=== PATIENT | female | born 1995 | race Caucasian/White ===

== ENCOUNTER 2020-12-30 14:14 | Inpatient (IN) | payer MEDICAID ==
[~2020-12-30] VITALS: Ht 167.6 cm; Wt 83.0 kg
[2020-12-30] MEDS ORDERED: DEXT 5%/LR + PITOCIN 20UNITS/L 1,000 ML IV SCH (16:00)
[2020-12-30] MEDS ORDERED: LACTATED RINGERS 1,000 ML IV SCH (16:00)
[2020-12-30 16:14] LABS: CLARITY URINE CLEAR (CLEAR); COLOR URINE YELLOW (YELLOW); KETONES URINE TRACE (NEGATIVE); LEUKOCYTE ESTERASE URINE 2+ (NEGATIVE); NITRITE URINE NEGATIVE (NEGATIVE); OCCULT BLOOD URINE NEGATIVE (NEGATIVE); PH URINE 6.5 (4.5-8.0); PROTEIN URINE TRACE (NEGATIVE); SPECIFIC GRAVITY URINE 1.025 (1.005-1.030)
[2020-12-30] MEDS ORDERED: CITRIC ACID/SODIUM CITRATE SOLN 30ML UDC PO NR (16:15)
[2020-12-30 16:22] LABS: BASOPHILS % 0.5 % (0.0-2.0); HEMATOCRIT. 28.8 % (36.0-48.0); HEMOGLOBIN. 9.5 g/dL (12.0-16.0); LYMPHOCYTES % 15.5 % (20.0-50.0); MEAN CORPUSCULAR HEMOGLOBIN 28.3 pg (28.0-32.0); MEAN CORPUSCULAR VOLUME 86.1 fL (81.0-99.0); MEAN PLATELET VOLUME 8.5 fl (7.4-10.4); MONOCYTES % 7.1 % (2.0-8.0); NEUTROPHILS % 75.9 % (40.0-76.0); PLATELET 226 x1000/uL (130-400); RED BLOOD CELL COUNT 3.35 mill/uL (4.2-5.4); RED CELL DISTRIBUTION WIDTH 15.1 % (11.6-14.6)
[2020-12-30 16:23] LABS: PARTIAL THROMBOPLASTIN TIME 30.9 sec (23.4-31.0); PROTHROMBIN TIME 10.3 sec (9.6-11.0)
[2020-12-30 16:32] LABS: *AMPHETAMINES SCREEN URINE NEGATIVE (NEGATIVE); *BARBITURATES SCREEN URINE NEGATIVE (NEGATIVE); *BENZODIAZEPINES SCREEN URINE NEGATIVE (NEGATIVE); *COCAINE SCREEN URINE NEGATIVE (NEGATIVE); METHADONE URINE SCREEN NEGATIVE (NEGATIVE)
[2020-12-30 16:33] LABS: OPIATES URINE SCREEN NEGATIVE (NEGATIVE); PHENCYCLIDINE URINE SCREEN NEGATIVE (NEGATIVE)
[2020-12-30 16:41] LABS: CANNABINOID URINE SCREEN PRESUMTIVE POSITIVE (NEGATIVE)
[2020-12-30] MEDS ORDERED: CEFAZOLIN SODIUM 1000MG/VIAL ONE (16:44)
[2020-12-30] MEDS ORDERED: MORPHINE SULFATE/PF 1MG/ML 10ML AMP ONE (16:44)
[2020-12-30] MEDS ORDERED: ONDANSETRON HCL 4MG/2ML INJ ONE (16:44)
[2020-12-30] MEDS ORDERED: OXYTOCIN 10 UNITS/ML 1ML ONE (16:44)
[2020-12-30] MEDS ORDERED: EPHEDRINE SULFATE 50MG/ML VIAL ONE (16:44)
[2020-12-30] MEDS ORDERED: FENTANYL CITRATE/PF 50MCG/ML 2ML VIAL ONE (16:44)
[2020-12-30 16:57] LABS: HEPATITIS B SURFACE ANTIGEN NEGATIVE
[2020-12-30] MEDS ORDERED: ESMOLOL HCL 10MG/ML 10ML VIAL IV ONE (21:02)
[2020-12-30] MEDS ORDERED: KETOROLAC 60MG/2ML VIAL IM ONE (21:02)
[2020-12-30] MEDS ORDERED: DIPHENHYDRAMINE 50MG/ML VIAL ONE (21:02)
[2020-12-30] MEDS ORDERED: DIPHENHYDRAMINE 50MG/ML VIAL IV PRN (21:15)
[2020-12-30] MEDS ORDERED: NALOXONE HCL 0.4 MG/ML 1ML VIAL IV PRN (21:15)
[2020-12-30] MEDS ORDERED: BUTORPHANOL TARTRATE 2 MG/ML VIAL IV PRN ×2 (21:15→22:00)
[2020-12-30] MEDS ORDERED: RHO(D) IMMUNE GLOBULIN 300 MCG/SYR IM PRN (21:45)
[2020-12-30] MEDS ORDERED: KETOROLAC 30MG/ML VIAL IV PRN (21:45)
[2020-12-30] MEDS ORDERED: BISACODYL 10MG SUPP PR PRN (21:45)
[2020-12-30] MEDS ORDERED: IBUPROFEN 400MG TABLET PO PRN (21:45)
[2020-12-30] MEDS: DEXT 5%/LR + PITOCIN 20UNITS/L 1,000 ML IV SCH (22:21)
[2020-12-30 22:50] VITALS: BP 114/68
[2020-12-31] VITALS: BP 107/73
[2020-12-31] MEDS: KETOROLAC 30MG/ML VIAL IV SCH ×3 (00:50→12:57)
[2020-12-31 04:00] VITALS: BP 112/64
[2020-12-31 06:49] LABS: BASOPHILS % 0.3 % (0.0-2.0); EOSINOPHILS % 0.3 % (0.0-5.0); HEMATOCRIT. 28.4 % (36.0-48.0); HEMOGLOBIN. 9.2 g/dL (12.0-16.0); LYMPHOCYTES % 9.7 % (20.0-50.0); MEAN CORPUSCULAR HEMOGLOBIN 27.7 pg (28.0-32.0); MEAN CORPUSCULAR VOLUME 85.9 fL (81.0-99.0); MEAN PLATELET VOLUME 8.3 fl (7.4-10.4); MONOCYTES % 8.1 % (2.0-8.0); NEUTROPHILS % 81.6 % (40.0-76.0); PLATELET 205 x1000/uL (130-400); RED BLOOD CELL COUNT 3.31 mill/uL (4.2-5.4); RED CELL DISTRIBUTION WIDTH 14.8 % (11.6-14.6)
[2020-12-31] MEDS: DEXT 5%/LR + PITOCIN 20UNITS/L 1,000 ML IV SCH (07:03)
[2020-12-31 07:42] VITALS: BP 116/50
[2020-12-31] MEDS ORDERED: ONDANSETRON HCL 4MG/2ML INJ IV PRN (09:45)
[2020-12-31 16:00] VITALS: BP 109/63
[2020-12-31] MEDS: IBUPROFEN 800MG TABLET PO PRN (19:22)
[2020-12-31 19:30] VITALS: BP 112/63
[2021-01-01 04:00] VITALS: BP 114/68
[2021-01-01] MEDS: IBUPROFEN 800MG TABLET PO PRN (06:15)
[2021-01-01] MEDS ORDERED: IBUP-2030 MT (06:20)
[2021-01-01 08:30] VITALS: BP 117/74
[2021-01-06 09:07] LABS: CANNABINOID CONFIRMATION URINE Positive (.)
== END 2021-01-01 11:30 | disposition home or self-care (01) | DRG 540 ==
LOC: OBSVTOIN 14:14 → 8 EST LDRP 14:14 → 8EST 22:50
PROVIDERS: ADMIT Obstetrics & Gynecology; ATTEND Obstetrics & Gynecology
PROC: 10D00Z1 Extraction of Products of Conception, Low, Open Approach (ICD-10-PCS; principal; 2020-12-30)
DX: O34.211 Maternal care for low transverse scar from previous cesarean delivery (principal); Z20.822 Contact with and (suspected) exposure to COVID-19; Z37.0 Single live birth; Z3A.39 39 weeks gestation of pregnancy; Z82.49 Family history of ischemic heart disease and other diseases of the circulatory system; Z79.899 Other long term (current) drug therapy
CPT/HCPCS: 36415; 76805; 76818; 80305; 80349; 81003; 85025; 86592; 86703; 86762; 86850; 86900; 87340; 87426; 88307; 99281; G0378; J0595; J0690; J1200; J1885; J2274; J2405; J2590; J3010; J3490; A4315